=== PATIENT | male | born 1980 | race Caucasian/White ===

== ENCOUNTER 2021-07-03 18:33 | Emergency (ER) | payer BC, SELFPAY ==
--- NOTE | ~2021-07-03 | XR_ITS ---
XR ribs LT 2V w CXR 2V DATE: 07/03/2021 20:35 INDICATION: Left anterior rib pain TECHNIQUE: PA and lateral chest. 3 views of the left ribs COMPARISON: None FINDINGS: Normal heart size. No hilar or mediastinal enlargement. No pulmonary infiltrate or consolid ation, pleural effusion or pulmonary vascular congestion or pneumothorax. No left rib fracture or bone destruction is detected. IMPRESSION: No left rib fracture or bone destruction No active cardiopulmonary disease Reviewed, dictated and finalized at location A. BUILDER HELPER
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
--- NOTE | ~2021-07-03 | CT_ITS ---
EXAMINATION: CT cervical spine wo con DATE: 07/03/2021 19:10 INDICATION: Head injury. Neck pain. TECHNIQUE: Computed tomography (CT) of the cervical spine was performed without intravenous contrast. Automated exposure control and iterative reconstruction technique were employed. Exam dose: 466.83 mGy-cm total exam DLP. COMPARISON: None FINDINGS: There is straightening of the cervical spine which may be due to muscle spasm or positionin g. Posterior spurring at C3-4 anterolisthesis at C4-5. No fracture or dislocation or locked facet or prevertebral soft tissue swelling. . Mild degenerative disc disease at C6-7. Remaining cervical interspaces are well preserved. IMPRESSION: Straightening of the cervical spine Mild cervical spondylosis Reviewed, dictated and finalized at [facility]. Reviewed, dictated and finalized at location A. NE[employer]MAN ELECTRICIAN PV INSTALLER
--- NOTE | ~2021-07-03 | XR_ITS ---
XR hand RT 2V DATE: 07/03/2021 20:14 INDICATION: Bite at first digit. Pain at interphalangeal joint. TECHNIQUE: 3 views COMPARISON: None FINDINGS: No fracture, dislocation, periosteal reaction or bone destruction. No radiopaque soft tissu e foreign body or subcutaneous emphysema is detected. IMPRESSION: No significant abnormality Reviewed, dictated and finalized at location A. ER HEATER IMPRESSION: No significant abnormality
[2021-07-03 18:44] VITALS: BP 149/102; PULSE 126; RESP 18; TEMP 37.2; O2SAT 98
[2021-07-03 19:00] VITALS: BP 141/89; PULSE 100; RESP 18; O2SAT 98
[2021-07-03] MEDS: MORPHINE SULFATE (*CRX) 4 MG/ML INJ IV PUSH (19:16)
[2021-07-03] MEDS: SODIUM CHLORIDE 0.9% IV 1,000 ML 999 ML IV CONT (19:16)
[2021-07-03] MEDS: ONDANSETRON INJ 4 MG/2 ML VIAL IV PUSH (19:16)
[2021-07-03 19:25] LABS: Basophils Absolute Auto 0.1 K/mm3 (0.0-0.1); Basophils Percent Auto 0.8 % (0.2-1.2); Eosinophils Absolute Auto 0.1 K/mm3 (0-0.3); Hematocrit 47.4 % (42.0-52.0); Hemoglobin 16.7 g/dL (14.0-18.0); Immature Granulocyte Absolute 0.16 K/mm3 (0.00-0.031); Immature Granulocyte Percent A 1.8 % (0-0.5); Lymphocytes Absolute Auto 1.52 K/mm3 (0.9-3.2); Lymphocytes Percent Auto 17.1 % (18.3-44.2); Mean Corpuscular HGB Conc 35.2 g/dl (32-36); Mean Corpuscular Hemoglobin 29.9 pg (26-34); Mean Corpuscular Volume 84.9 fl (80-100); Mean Platelet Volume 10.2 fl (7.4-10.4); Monocytes Absolute Auto 0.9 K/mm3 (0.1-0.6); Monocytes Percent Auto 9.6 % (2.6-8.5); Neutrophils Absolute Auto 6.2 K/mm3 (1.3-6.7); Neutrophils Percent Auto 69.7 % (45.5-73.1); Platelet Count Result 256 k/mm3 (150-375); Red Blood Count 5.58 M/mm3 (4.6-6.20); White Blood Count 8.9 K/mm3 (4.5-10.0)
[2021-07-03 19:34] LABS: Anion Gap 11 mmol/L (8-16); Blood Urea Nitrogen 16 mg/dL (9-20); Calcium 8.8 mg/dL (8.4-10.2); Carbon Dioxide 22 mmol/L (22-30); Chloride 101 mmol/L (98-107); Estimated CRCL calculation 119 ml/min; Estimated Glomerular Filt Rate > 60; Glucose 248 mg/dL (65-110); Potassium 3.8 mmol/L (3.4-5.0); Sodium 134 mmol/L (137-145)
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
[2021-07-03] MEDS: TETANUS,DIPHTHERIA,AC PERTUSSIS ADULT (0.5 ML) BOOSTRIX IM (20:39)
[2021-07-03 21:00] VITALS: BP 140/75; PULSE 106; RESP 12; TEMP 37.1; O2SAT 98
== END 2021-07-03 21:10 | disposition home or self-care (01) ==
PROVIDERS: Emergency Medicine; Emergency Provider Emergency Medicine; PCP Physician Assistant Medical
DX: S09.90XA Unspecified injury of head, initial encounter (principal); S60.311A Abrasion of right thumb, initial encounter; S00.511A Abrasion of lip, initial encounter; S00.01XA Abrasion of scalp, initial encounter; Z23 Encounter for immunization; Y00.XXXA Assault by blunt object, initial encounter; Y04.1XXA Assault by human bite, initial encounter; M47.812 Spondylosis without myelopathy or radiculopathy, cervical region
CPT/HCPCS: 36415; 70450; 71046; 71100; 72125; 73120; 80048; 85025; 90471; 90715; 96365; 96375; 99284; J0131; J2270; J2405; J7030

== ENCOUNTER 2022-06-22 00:07 | Emergency (ER) | payer BC, SELFPAY ==
[2022-06-22] VITALS (12 sets, daily range): BP systolic 101–171; BP diastolic 69–112; PULSE 70–116; RESP 18–20; TEMP 36.4–36.6; O2SAT 92–98
--- NOTE | ~2022-06-22 | CT_ITS ---
EXAMINATION: CT BRAIN W/O DATE: 06/22/2022 01:54 INDICATION: Partial small carbon monoxide poisoning. Frontal headache with nausea and dizziness. TECHNIQUE: Computed tomography (CT) of the head was performed without intravenous contrast. The dose- length product was 605.33 mGy-cm. Automated exposure control and iterative reconstruction technique w ere employed. COMPARISON: No prior studies for comparison. FINDINGS: Normal brain parenchymal volume for age. Normal mata-white differentiation. No acute intrac ranial hemorrhage, infarction, mass or mass effect. No ventriculomegaly or midline shift. Midline sagittal images demonstrate a normal corpus callosum, c raniovertebral junction and sella turcica. Basilar cisterns are patent. Paranasal sinuses and mastoids are pneumatized. No depressed skull fractures. IMPRESSION: 1. No acute intracranial abnormality. Reviewed, dictated and finalized at location A. RAFT BODY REPAIRER
--- NOTE | ~2022-06-22 | XR_ITS ---
EXAMINATION: XR chest 1V portable 06/22/2022 01:57 INDICATION: Nausea and vomiting PROCEDURE: AP view of the chest COMPARISON: 12/03/2021 FINDINGS: The lungs are clear. The cardiomediastinal silhouette is within normal limits. There are no pleural effusions. There is no pneumothorax suspected. IMPRESSION: 1: NO ACUTE CARDIOPULMONARY DISEASE. Reviewed, dictated and finalized at location A. NING MULE TENDER
--- NOTE | 2022-06-22 01:01 | PC.NURSE ---
Triage note reviewed and confirmed. Updated pt on plan of care. Resting comfortably in bed. Pt c/o n/v d/t weird smell when i bought this new car. Hx of dm. a&ox4, NAD.
--- NOTE | 2022-06-22 01:37 | ECG_ITS ---
Measurements Intervals [place] Rate: 89 P: 38 NM: 148 QRS: -44 QRSD: 114 T: 27 QT: 345 QTc: 422 Interpretive Statements SINUS RHYTHM MARKED LEFT AXIS DEVIATION INCOMPLETE RIGHT BUNDLE BRANCH BLOCK CANNOT RULE OUT ANTERIOR MYOCARDIAL INFARCTION, OF INDETERMINATE AGE ABNORMAL ECG NO PREVIOUS ECG AVAILABLE FOR COMPARISON Electronically Signed On 06-22-2022 16:41:17 [employer] by Js Gorman M.D.
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
[2022-06-22 01:55] LABS: Basophils Absolute Auto 0.1 K/mm3 (0.0-0.1); Basophils Percent Auto 1.1 % (0.2-1.2); Eosinophils Absolute Auto 0.2 K/mm3 (0-0.3); Eosinophils Percent Auto 1.8 % (0-4.4); Hematocrit 47.2 % (42.0-52.0); Hemoglobin 15.7 g/dL (14.0-18.0); Immature Granulocyte Absolute 0.07 K/mm3 (0.00-0.031); Immature Granulocyte Percent A 0.7 % (0-0.5); Lymphocytes Absolute Auto 2.84 K/mm3 (0.9-3.2); Lymphocytes Percent Auto 28.1 % (18.3-44.2); Mean Corpuscular HGB Conc 33.3 g/dl (32-36); Mean Corpuscular Hemoglobin 30.8 pg (26-34); Mean Corpuscular Volume 92.7 fl (80-100); Mean Platelet Volume 10.4 fl (7.4-10.4); Monocytes Absolute Auto 0.7 K/mm3 (0.1-0.6); Monocytes Percent Auto 6.4 % (2.6-8.5); Neutrophils Absolute Auto 6.3 K/mm3 (1.3-6.7); Neutrophils Percent Auto 61.9 % (45.5-73.1); Platelet Count Result 312 k/mm3 (150-375); Red Blood Count 5.09 M/mm3 (4.6-6.20); Red Cell Distribution Width 13.3 % (11.5-14.5); White Blood Count 10.1 K/mm3 (4.5-10.0)
[2022-06-22 02:08] LABS: Alanine Aminotransferase 33 U/L (6-50); Albumin Level 4.7 g/dL (3.5-5.1); Alkaline Phosphatase 54 U/L (38-126); Anion Gap 8 mmol/L (8-16); Aspartate Amino Transferase 26 U/L (17-59); Bilirubin,Total 0.8 mg/dL (0.2-1.3); Blood Urea Nitrogen 16 mg/dL (9-20); Calcium 8.9 mg/dL (8.4-10.2); Carbon Dioxide 23 mmol/L (22-30); Chloride 106 mmol/L (98-107); Estimated CRCL calculation 150 ml/min; Estimated Glomerular Filt Rate > 60; Glucose 109 mg/dL (65-110); Lipase 46 U/L (23-300); Magnesium 2.1 mg/dL (1.6-2.3); Potassium 3.8 mmol/L (3.4-5.0); Sodium 137 mmol/L (137-145)
[2022-06-22] MEDS: ONDANSETRON INJ 4 MG/2 ML VIAL IV PUSH (02:12)
[2022-06-22] MEDS: SODIUM CHLORIDE 0.9% IV 2,000 ML 999 ML IV CONT (02:12)
[2022-06-22 02:28] LABS: Fractional Inspired Oxygen 100 %; HCO3 VBG 21.3 mEq/l (24.0-30.0); PCO2 VBG 35.8 mmHg (42.0-48.0); PO2 VBG 61.2 mmHg (35.0-45.0); pH VBG 7.392 (7.300-7.400)
[2022-06-22 02:29] LABS: Device NON-REBREATHER MASK
[2022-06-22 03:21] LABS: Mucus Urine Rare /lpf; RBC Urine 0-2 /hpf (0-2)
[2022-06-22 03:22] LABS: Appearance Urine Clear (Clear); Bilirubin Urine Negative (Negative); Blood Urine Negative (Negative); Color Urine Yellow (Yellow); Glucose Urine UA 2+ mg/dL (Negative); Ketones Urine 1+ mg/dL (Negative); Leukocyte Esterase Ur Negative LEU/UL (Negative); Nitrate Urine Negative (Negative); Protein Urine Negative (Negative); Urobilinogen Urine 0.2 mg/dL (<2.0)
[2022-06-22 03:25] LABS: Add Urine Microscopic? YES
--- NOTE | 2022-06-22 03:32 | PC.NURSE ---
Rounded on pt. Pt states feeling better. Updated pt on plan of care, all needs addressed, no question at this time.
== END 2022-06-22 04:21 | disposition home or self-care (01) ==
PROVIDERS: Emergency Provider Emergency Medicine; PCP Physician Assistant Medical
DX: Z77.098 Contact with and (suspected) exposure to other hazardous, chiefly nonmedicinal, chemicals (principal); E11.9 Type 2 diabetes mellitus without complications; I10 Essential (primary) hypertension; E78.1 Pure hyperglyceridemia; Z79.84 Long term (current) use of oral hypoglycemic drugs; Z79.4 Long term (current) use of insulin; Z79.85 Long-term (current) use of injectable non-insulin antidiabetic drugs; I45.10 Unspecified right bundle-branch block; R94.31 Abnormal electrocardiogram [ECG] [EKG]
CPT/HCPCS: 36415; 70450; 71045; 80053; 81001; 82803; 83690; 83735; 85025; 93005; 96361; 96374; 99284; J2405; J7030

== ENCOUNTER → 2023-02-10 14:48 | Outpatient (CLI) | payer BC, SELFPAY ==
--- NOTE | ~2023-02-10 | MR_ITS ---
EXAMINATION: MR lumbar spine wo con DATE: 02/10/2023 15:56 INDICATION: Low back pain. Left-sided leg pain. TECHNIQUE: Magnetic resonance imaging (MRI) of the lumbar spine was performed without intravenous con trast. Sequences included sagittal T2-weighted FSE, sagittal T2-weighted FS FSE, sagittal T1-weighted FSE, and axial T2-weighted FSE. COMPARISON: Lumbar spine radiographs 01/21/2023 FINDINGS: Bone alignment is normal. There is mild chronic anterior wedging of L1 vertebral body. Ther e are Schmorl's nodes at most levels. There is mildly decreased disc height at L5-S1. The distal spin al cord signal intensity is normal. The conus medullaris is at L1. The following disc levels are spec ifically discussed: L1-L2: The disc does not extend beyond the endplate margin. There is mild bilateral facet joint osteo arthritis. There is no neural foraminal stenosis. There is no central canal stenosis. L2-L3: The disc does not extend beyond the endplate margin. There is mild bilateral facet joint osteo arthritis. There is no neural foraminal stenosis. There is no central canal stenosis. L3-L4: The disc does not extend beyond the endplate margin. There is mild bilateral facet joint osteo arthritis. There is no neural foraminal stenosis. There is no central canal stenosis. L4-L5: The disc is bulging. There is mild bilateral facet joint osteoarthritis. There is mild bilater al neural foraminal stenosis. There is mild central canal stenosis. L5-S1: There is a left central and left subarticular zone extrusion with mass effect on left S1 nerve root in left lateral recess. There is mild bilateral facet joint osteoarthritis. There is mild bilat eral neural foraminal stenosis. There is mild central canal stenosis. There is severe stenosis of lef t lateral recess. IMPRESSION: 1. Extrusion at L5-S1 with mass effect on left S1 nerve root. 2. Mild spondylosis at other levels. Reviewed, dictated and finalized at location A.
== END ==
PROVIDERS: PCP Physician Assistant Medical; Visit Provider Physician Assistant Medical
DX: M47.26 Other spondylosis with radiculopathy, lumbar region (principal); M51.27 Other intervertebral disc displacement, lumbosacral region
CPT/HCPCS: 72148

== ENCOUNTER 2023-07-20 08:59 | Emergency (ER) | payer BC, SELFPAY ==
[2023-07-20 09:07] VITALS: BP 118/79; PULSE 93; RESP 18; TEMP 36.7; O2SAT 99
--- NOTE | 2023-07-20 09:37 | ED.GENADULT ---
HPI - General Adult General Chief complaint: Skin/Abscess/Foreign Body Stated complaint: Skin Irritation Under Lt Arm Time Seen by Provider: 07/20/23 09:37 Source: patient Mode of arrival: ambulatory Limitations: no limitations History of Present Illness HPI narrative: 42-year-old male patient came into clinic today with complaints of a tender area of his left upper arm where his Dexcom had been so he switched the Dexcom location to his right arm. He reports that last week he noticed his blood sugar readings were off with his Dexcom site in his left arm he had just recently switched to Dexcom under the instruction of his superior court justice. he reports that after he switched it the site was red and swollen and he was able to express purulent drainage from it and it is healed fine. He also presents with a large tender area under his left axilla that he states started and has gotten bigger. Patient states it is warm to touch and denies fevers, chills, body aches. patient states it has not been draining any fluid or discharge. patient is a type 1 diabetic has never had anything like this before. Related Data Home Medications Medication Instructions Recorded Confirmed semaglutide 0.25 mg or 0.5 mg (2 mg subcut 07/20/23 07/20/23 mg/3 mL) subcutaneous pen injector ([employer]) Allergies Allergy/AdvReac Type Severity Reaction Status Date / Time Penicillins AdvReac Rash Verified 07/20/23 09:12 Review of Systems Review of Systems: CONSTITUTIONAL: Denies fever, chills, or sweats. EYES: Denies visual changes, redness, or discharge. ENT: Denies rhinorrhea, congestion, sore throat, or otalgia. CARDIOVASCULAR: Denies chest pain, palpitations, or edema. RESPIRATORY: Denies cough or dyspnea. GASTROINTESTINAL: Denies abdominal pain, nausea, vomiting, or diarrhea. GENITOURINARY: Denies dysuria or hematuria. SKIN: Denies rash or itching. positive is scabbed area of left upper arm where previous Dexcom site was and a positive hard, painful, reddened area under his left axilla. MUSCULOSKELETAL: Denies back pain, joint pain, or myalgia. NEUROLOGIC: Denies headache, numbness, or weakness. PSYCHIATRIC: Denies anxiety or depression. [facility] Past Medical History Medical History Diabetes Hypertension Hypertriglyceridemia Social History Social History Years smoked: 7 Smoking status: Former smoker Tobacco type: cigarettes Second hand tobacco smoke exposure: No Smoking end date: 05/05/22 Alcohol intake: never Substance use: never Substance use type: does not use Lack of Transportation: No Lack of Food: Never True Current Housing: I Have Housing Concerned About Future Housing: No Difficulty Paying Gas/Electric Bills: No Difficulty Paying for Meds: No Currently Unemployed: No Education: Master's Degree or Higher Difficulty w/ Childcare or Family Care: No Living arrangements: with family Occupation/Education: occupation Gender identity (if verbalized by the patient): Male Sexual Orientation (if Verbalized by the Patient): Straight or Heterosexual Exam Narrative: GENERAL: Well-appearing, well-nourished, and in no acute distress. HEAD: Normocephalic, atraumatic. EYES: PERRLA and EOMI. ENT: Nares clear, no rhinorrhea or epistaxis. Mucous membranes moist. NECK: Supple. No lymphadenopathy CHEST: Clear to auscultation. No respiratory distress. HEART: Regular rate and rhythm. No murmur heard. Normal peripheral pulses. ABDOMEN: Soft, nontender, nondistended, normal active bowel sounds. EXTREMITIES: Normal range of motion. No edema. SKIN: Warm, dry, no rash. small scabbed area of the left mid humeral anterior area that looks well healed without signs of infection or drainage. 7 cm x 10 cm oval shaped, non fluctuating erythematous and edematous area of the left axilla. Left ax
[2023-07-20] MEDS: LIDOCAINE HCL 1% LOCAL INJ 2 ML AMPUL 10 ML INFILTRATE (09:46)
== END 2023-07-20 10:23 | disposition home or self-care (01) ==
PROVIDERS: Emergency Provider Nurse Practitioner Family; PCP Physician Assistant Medical
DX: L02.412 Cutaneous abscess of left axilla (principal); B95.62 Methicillin resistant Staphylococcus aureus infection as the cause of diseases classified elsewhere; L73.2 Hidradenitis suppurativa; Z87.891 Personal history of nicotine dependence; E10.9 Type 1 diabetes mellitus without complications; I10 Essential (primary) hypertension
CPT/HCPCS: 10061; 87070; 87075; 87147; 87181; 87205; 99213; G0463